=== PATIENT | male | born 2000 | race Caucasian/White ===

== ENCOUNTER → 2023-03-22 | Outpatient (CLI) | payer OTHER | LOC: M PLALAB 09:33 | PROVIDERS: ATTEND Obstetrics & Gynecology | DX: Z31.440 Encounter of male for testing for genetic disease carrier status for procreative management (principal) ==

== ENCOUNTER → 2024-04-03 | Outpatient (CLI) | payer OTHER ==
[~2024-04-03] MED LIST: ACET1TAB55 PO; CYCL-707 PO; MEDR4PAK PO
== END ==
LOC: M OUTALCOH 07:34
PROVIDERS: ATTEND Psychiatry & Neurology Psychiatry
DX: F10.10 Alcohol abuse, uncomplicated (principal); F17.200 Nicotine dependence, unspecified, uncomplicated